=== PATIENT | male | born 1980 | race Caucasian/White ===

== ENCOUNTER 2016-11-23 21:40 | Emergency (ER) | payer OTHER ==
[2016-11-23 22:21] VITALS: BP 134/83; PULSE 102; TEMP 98.3; BMI 33.5
--- NOTE | 2016-11-23 22:44 | PDOC ---
*Physical Exam - Vital Signs Last Vital Signs Temp Pulse Resp BP Pulse Ox 98.3 F 102 H 16 134/83 95 11/23/16 22:16 11/23/16 22:16 11/23/16 22:16 11/23/16 22:16 11/23/16 22:16 Medical Decision Making - Medical Decision Making 11/23/16 22:44 agree with care from [facility] *DC/Admit/Observation/Transfer Diagnosis at time of Disposition: Right arm pain - Discharge Dispostion Disposition: HOME - Prescriptions Prescriptions: Cyclobenzaprine HCl [Flexeril -] 10 mg PO TID PRN #21 tablet PRN Reason: Arm Pain Ibuprofen [Motrin -] 400 mg PO Q6H PRN #30 tablet PRN Reason: Mild Pain Hydrocodone/Acetaminophen [Vicodin 5-300 mg Tablet] 1 each PO Q6H PRN #16 tablet MDD 4 tabs PRN Reason: Severe Pain - Referrals Referrals: Shaan Johnson MD [Staff Physician] - - Patient Instructions Printed Discharge Instructions: DI for Arm Pain Additional Instructions: FOLLOW UP WITH DR. JOHNSON (ORTHOPEDIC) REGARDING TODAYS VISIT. CALL TO SCHEDULE APPOINTMENT. TAKE MEDICATIONS PRESCRIBED. DO NOT DRIVE, DRINK ALCOHOL, OR OPERATE HEAVY MACHINEY WHILE TAKING VICODIN. Print Language: BOTSWANAN
[2016-11-23] MEDS ORDERED: IBUPROFEN 400 MG TABLET (FP) PO ONE ×2 (23:03→23:31)
[2016-11-23] MEDS ORDERED: OXYCODONE/APAP 5/325MG COMBO TABLET PO ONE (23:03)
[2016-11-23] MEDS ORDERED: OXYCODONE/APAP 5/325MG COMBO TABLET ONE (23:31)
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
== END 2016-11-24 00:51 | disposition home or self-care (01) ==
LOC: JER 21:40
DX: M79.601 Pain in right arm (principal); X50.0XXA Overexertion from strenuous movement or load, initial encounter; Y93.89 Activity, other specified; Y92.89 Other specified places as the place of occurrence of the external cause; Y99.0 Civilian activity done for income or pay
CPT/HCPCS: 99283-25